=== PATIENT | female | born 1965 | race Caucasian/White ===

== ENCOUNTER 2020-02-01 12:44 | Outpatient (CLI) | payer OTHER ==
--- NOTE | 2020-02-01 16:02 | MRI ---
BILATERAL BREAST MRI WITH AND WITHOUT IV CONTRAST WITH REVIEW ON INDEPENDENT 3D WORKSTATION: Date: 02/01/2020 HISTORY: 54-year-old female with other abnormal and inconclusive findings. Strong family history of breast can cer. COMPARISON: 01/22/2019. 05/05/2018. FINDINGS: Moderate bilateral parenchymal enhancement is again seen. Multiple bilateral cysts are again noted. The [id number] enhancement in the left breast 3 o'clock position is essentially unchanged. This is in the region of architectural distortion which is stable. No axillary or internal mammary lymphadenopathy seen. Visualized portions of the liver are unremarkab le. IMPRESSION: BI-RADS Category 2 - Benign findings. Annual mammographic screening is recommended. Follow-up with breast MRI should be based on clinical findings/suspicion. POS: [facility]
== END 2020-02-01 12:45 | disposition home or self-care (01) ==
LOC: BICMRI 12:44
PROVIDERS: ATTEND Family Medicine
DX: R92.8 Other abnormal and inconclusive findings on diagnostic imaging of breast (principal)
CPT/HCPCS: 82565; A9577; C8908

== ENCOUNTER 2021-02-21 14:14 | Outpatient (CLI) | payer OTHER | END 2021-02-21 14:15 | disposition home or self-care (01) | LOC: CT 14:14 | PROVIDERS: ATTEND Family Medicine | DX: R10.11 Right upper quadrant pain (principal); R07.9 Chest pain, unspecified; K44.9 Diaphragmatic hernia without obstruction or gangrene | CPT/HCPCS: 74160 ==

== ENCOUNTER 2023-04-02 13:12 | Outpatient (CLI) | payer BC | END 2023-04-02 13:13 | disposition home or self-care (01) | LOC: BICRAD 13:12 | PROVIDERS: ATTEND Student in an Organized Health Care Education/Training Program | DX: M70.52 Other bursitis of knee, left knee (principal) ==

== ENCOUNTER 2023-06-27 09:55 | Outpatient (CLI) | payer BC | END 2023-06-27 09:56 | disposition home or self-care (01) | LOC: MRI 09:55 | PROVIDERS: ATTEND Family Medicine | DX: M25.362 Other instability, left knee (principal); M25.562 Pain in left knee; M22.2X2 Patellofemoral disorders, left knee ==

== ENCOUNTER 2023-06-28 12:15 | Outpatient (CLI) | payer BC | END 2023-06-28 12:16 | disposition home or self-care (01) | LOC: BICRAD 12:15 | PROVIDERS: ATTEND Family Medicine | DX: M54.6 Pain in thoracic spine (principal); M47.814 Spondylosis without myelopathy or radiculopathy, thoracic region | CPT/HCPCS: 72072 ==

== ENCOUNTER 2024-04-21 09:31 | Outpatient (CLI) | payer BC | END 2024-04-21 09:32 | disposition home or self-care (01) | LOC: BICMAMMO 09:31 | PROVIDERS: ATTEND Family Medicine | DX: N63.42 Unspecified lump in left breast, subareolar (principal); N60.02 Solitary cyst of left breast | CPT/HCPCS: 77066; G0279 ==